=== PATIENT | male | born 1945 | race Caucasian/White ===

== ENCOUNTER 2019-12-18 19:28 | Emergency (ER) | payer MEDICARE ==
[~2019-12-18] VITALS: Ht 175.3 cm; Wt 102.3 kg
[~2019-12-18 19:28] MED LIST: AMLODIPINE BESYL5 MG PO; CRESTOR10 MG PO; HCTZ 25MG25 MG PO; LISINOPRIL20 MG PO; METFORMIN500 MG PO; POTASSIUM CITRA1 GRA; TRICOR145 MG PO; ZYLOPRIM 300MG300 MG PO
[2019-12-18 19:29] VITALS: TEMP 97.7
[2019-12-18 19:55] LABS: BASO % 0.3 % (0.0-2.0); EOS % 0.3 % (0-4.0); GRAN # 9.2 (1.4-6.5); GRAN % 73.4 % (42.2-75.2); HEMATOCRIT 47.8 % (42.0-52.0); LYMPH # 2.1 (1.2-3.4); LYMPH % 16.9 % (20.0-51.0); MEAN CELL VOLUME 96 fl (80.0-100.0); MEAN CORPUSCULAR HEMOGLOBIN 30 pg (27.0-31.0); MEAN CORPUSCULAR HGB CONC 31 g/dl (33.0-37.0); MEAN PLATELET VOLUME 11.8 fl (7.4-10.4); MONO # 1.1 (0.1-0.6); MONO % 8.5 % (1.7-9.3); PLATELET COUNT 267 K/mm3 (130-400); RED BLOOD COUNT 4.97 M/mm3 (4.20-5.60); REDCELL DISTRIBUTION WIDTH-CV 14.4 % (11.5-14.5)
[2019-12-18 19:57] LABS: INR 1.1 (0.8-3.0); PROTHROMBIN TIME 12.2 SECONDS (9.7-12.8)
[2019-12-18 20:04] LABS: ALBUMIN 4.4 gm/dL (3.5-5.0); BILIRUBIN,TOTAL 0.9 mg/dL (0.0-1.0); C-REACTIVE PROTEIN 8.7 mg/dL (0.0-0.9); CALCIUM 9.5 mg/dL (8.4-10.2); CREATININE, serum 4.18 (0.66-1.25); TOTAL PROTEIN 7.7 gm/dL (6.4-8.2)
[2019-12-18 20:16] LABS: TROPONIN-I 0.397 ng/mL (0.000-0.035)
[2019-12-18 23:36] LABS: ARTERIAL BLD GAS O2 SATURATION 99.5 % (92-100); ARTERIAL BLD GAS TCO2 CT 15.6; ARTERIAL BLOOD GAS HCO3 14.8 meq/L (22-26); ARTERIAL BLOOD GAS PCO2 26.9 mmHg (35-45); ARTERIAL BLOOD GAS pH 7.36 (7.35-7.45)
[2019-12-18 23:40] LABS: ARTERIAL BLOOD GAS PO2 457.8 mmHg (80-100)
[2019-12-18 23:43] VITALS: BP 123/58; PULSE 56
[2019-12-19 00:25] LABS: ARTERIAL BLOOD GAS PCO2 62.9 mmHg (35-45); ARTERIAL BLOOD GAS PO2 156.6 mmHg (80-100); ARTERIAL BLOOD GAS pH 7.05 (7.35-7.45)
[2019-12-19 00:26] LABS: ARTERIAL BLD GAS O2 SATURATION 97.8 % (92-100); ARTERIAL BLOOD GAS BASE EXCESS -13.9 (-2-2); ARTERIAL BLOOD GAS HCO3 17.1 meq/L (22-26)
== END 2019-12-18 23:43 | disposition short-term general hospital (02) ==
LOC: COL.ER 19:28
PROVIDERS: Emergency Medicine
DX: I46.9 Cardiac arrest, cause unspecified (principal); I26.99 Other pulmonary embolism without acute cor pulmonale; U07.1 COVID-19; I10 Essential (primary) hypertension; Z79.84 Long term (current) use of oral hypoglycemic drugs
CPT/HCPCS: J0171; J0282; J0330; J1644; J2250; J2405; J2543; J2930; J2997; J3010; J7030; J7060; Q9967